=== PATIENT | female | born 1935 | race Caucasian/White ===

== ENCOUNTER 2020-10-21 08:09 | Emergency (ER) | payer MEDICARE ==
[2020-10-21] MEDS ORDERED: cloNIDine 0.1 MG TAB ONE (08:42)
== END 2020-10-21 10:54 | disposition home or self-care (01) ==
LOC: ERS 08:09
DX: I13.2 Hypertensive heart and chronic kidney disease with heart failure and with stage 5 chronic kidney disease, or end stage renal disease (principal); I50.9 Heart failure, unspecified; N18.6 End stage renal disease; E11.22 Type 2 diabetes mellitus with diabetic chronic kidney disease; E03.9 Hypothyroidism, unspecified; E78.5 Hyperlipidemia, unspecified; Z99.2 Dependence on renal dialysis
CPT/HCPCS: 36416; 93005

== ENCOUNTER 2020-12-19 17:24 | Inpatient (IN) | payer MEDICARE ==
[~2020-12-19 17:24] MED LIST: Iopamidol-370 76% 500 ML 1 ML ONE
[2020-12-19] MEDS ORDERED: hydrALAZINE 20 MG/ML VIAL ONE ×2 (18:10→20:22)
[2020-12-19 18:22] LABS: #Eosinphils 0.2 thou/uL (0.0-0.7); #Lymphocytes 1.4 thou/uL (1.20-3.40); #Monocytes 0.8 thou/uL (0.11-0.59); #Neutrophils 13.1 thou/uL (1.40-6.50); %Basophils 0.2 % (0.0-1.0); %Eosinophils 1.4 % (0.0-10.0); %Lymphocytes 8.9 % (21.0-51.0); %Monocytes 4.9 % (0.0-10.0); %Neutrophils 84.6 % (42.0-75.0); Hemoglobin 11.2 g/dL (12.0-16.0); Mean Corpuscular HGB CONC 34.2 g/dL (32.0-36.0); Mean Corpuscular Hemoglobin 34.4 pg (27.0-31.0); Mean Platelet Volume 7.8 fL (7.4-10.4); Platelet Count 168 thou/uL (130-400); RBC Distribution Width 13.9 % (11.5-14.5); Red Blood Cell (RBC) Count 3.26 mill/uL (4.20-5.40); White Blood Cell (WBC) Count 15.5 thou/uL (4.8-10.8)
[2020-12-19 18:31] LABS: Prothrombin Time 13.2 sec (12.0-14.7)
[2020-12-19 18:32] LABS: PTT 59.5 sec (22.9-36.1)
[2020-12-19 18:46] LABS: ALT (SGPT) 8 U/L (8-55); AST (SGOT) 18 U/L (5-34); Albumin 3.3 g/dL (3.4-4.8); Alkaline Phosphatase 116 U/L (40-110); Anion Gap 22 mmol/L (10-20); BUN (Urea Nitrogen) 13 mg/dL (9.8-20.1); Bilirubin, Total 0.4 mg/dL (0.2-1.2); CK (CPK) 99 U/L (29-168); Calc. Creatinine Clearance 0 mL/min (70-130); Calcium 8.6 mg/dL (7.8-10.44); Carbon Dioxide 21 mmol/L (23-31); Chloride 96 mmol/L (98-107); Globulin 3.8 g/dL (2.4-3.5); Glucose 247 mg/dL (83-110); Potassium 3.8 mmol/L (3.5-5.1); Protein, Total 7.1 g/dL (5.8-8.1); Sodium 135 mmol/L (136-145)
[2020-12-19 19:08] LABS: CKMB 3.8 ng/mL (0-6.6)
[2020-12-19 19:41] LABS: Bacteria/HPF None Seen HPF (None Seen); Bilirubin Negative (Negative); Blood, Urine 2+ (Negative); Clarity Extra Turbid (Clear); Glucose, Urine (Dipstick) Normal (Negative); Ketone, Urine Trace mg/dL (Negative); Leukocyte 500 Leu/uL (Negative); Nitrite Negative (Negative); Protein, Urine (Dipstick) 300 mg/dL (Neg-Trace); RBC/HPF None Seen HPF (0-3); Specific Gravity, Urine 1.012 (1.002-1.036); Squamous Epithelial None Seen HPF (0-3); Urobilinogen Normal mg/dL (Less than 2); WBC/HPF Greater than 50 HPF (0-3)
[2020-12-19] MEDS ORDERED: cefTRIAXone\\ROCEPHIN 1 GM VIAL ONE (20:02)
[2020-12-19] MEDS ORDERED: Vancomycin 1 GM/200 ML BAG ONE (20:02)
[2020-12-19] MEDS ORDERED: Ondansetron PF 4 MG/2 ML Vial IVP PRN (20:57)
[2020-12-19] MEDS ORDERED: Acetaminophen 325 MG TAB PO PRN (20:57)
[2020-12-19] MEDS ORDERED: HumaLOG 300 UNITS/3 ML VIAL SC PRN (20:58)
[2020-12-19] MEDS ORDERED: Dextrose 50% Abboject 50 ML SYRINGE SLOW IVP PRN (20:58)
[2020-12-19] MEDS ORDERED: Dextrose 5% in Water 1,000 ML IV PRN (20:58)
[2020-12-19] MEDS ORDERED: levETIRAcetam 500 MG TAB PO SCH (21:00)
[2020-12-19 21:10] LABS: Troponin I 0.084 ng/mL (< 0.028)
[2020-12-19] MEDS ORDERED: Carvedilol 3.125 MG TAB PO SCH (21:15)
[2020-12-19 21:35] LABS: SARS-CoV-2 NAA Rapid Test Not Detected (NotDetected)
[2020-12-19] MEDS: Heparin 5,000 UNITS/ML VIAL SC SCH (22:02)
[2020-12-19 22:26] VITALS: BMI 22.4
[2020-12-19] MEDS ORDERED: levETIRAcetam in NS 500 MG in Premix Bag 1 BAG IVPB SCH (22:30)
[2020-12-19] MEDS ORDERED: HOLD VANCOMYCIN FOR LEVEL >20 FS SCH (22:45)
[2020-12-19] MEDS ORDERED: Vancomycin HCl 250 MG in Sodium Chloride 0.9% 100 ML IVPB SCH (22:45)
[2020-12-19] MEDS ORDERED: Vancomycin 1 GM in Premix Bag 1 BAG IVPB SCH (22:45)
[2020-12-19] MEDS ORDERED: Vancomycin HCl 750 MG in Sodium Chloride 0.9% 250 ML 250 ML IVPB SCH (22:45)
[2020-12-19] MEDS ORDERED: Vancomycin HCl 500 MG in Sodium Chloride 0.9% 100 ML IVPB SCH (22:45)
[2020-12-20] MEDS: hydrALAZINE 20 MG/ML VIAL SLOW IVP PRN (00:32)
[2020-12-20 01:32] LABS: Troponin I 0.104 ng/mL (< 0.028)
[2020-12-20 05:00] LABS: #Lymphocytes 2.6 thou/uL (1.20-3.40); #Monocytes 1.1 thou/uL (0.11-0.59); #Neutrophils 11.5 thou/uL (1.40-6.50); %Basophils 0.2 % (0.0-1.0); %Eosinophils 0.2 % (0.0-10.0); %Lymphocytes 17.1 % (21.0-51.0); %Monocytes 7.1 % (0.0-10.0); %Neutrophils 75.4 % (42.0-75.0); Hemoglobin 11.1 g/dL (12.0-16.0); Mean Corpuscular HGB CONC 33.5 g/dL (32.0-36.0); Mean Corpuscular Hemoglobin 33.3 pg (27.0-31.0); Mean Corpuscular Volume 99.4 fL (78.0-98.0); Platelet Count 217 thou/uL (130-400); RBC Distribution Width 14.2 % (11.5-14.5); Red Blood Cell (RBC) Count 3.32 mill/uL (4.20-5.40); White Blood Cell (WBC) Count 15.3 thou/uL (4.8-10.8)
[2020-12-20 05:25] LABS: Anion Gap 24 mmol/L (10-20); BUN (Urea Nitrogen) 18 mg/dL (9.8-20.1); Calc. Creatinine Clearance 9 mL/min (70-130); Calcium 8.7 mg/dL (7.8-10.44); Carbon Dioxide 18 mmol/L (23-31); Chloride 98 mmol/L (98-107); Glucose 306 mg/dL (83-110); Potassium 3.7 mmol/L (3.5-5.1); Sodium 136 mmol/L (136-145)
[2020-12-20] MEDS: HumaLOG 300 UNITS/3 ML VIAL SC PRN (06:15)
[2020-12-20] MEDS ORDERED: Nitroglycerin 0.4 MG TAB (25 Tab Bottle) SL PRN (07:32)
[2020-12-20] MEDS ORDERED: Carvedilol 3.125 MG TAB PO SCH (08:00)
[2020-12-20] MEDS ORDERED: levETIRAcetam 500 MG TAB PO SCH (09:00)
[2020-12-20] MEDS ORDERED: Non-Formulary Item 1 EACH (Levothyroxine Sodium [Levothyroxine] 150 MCG Capsule) PO SCH (09:00)
[2020-12-20] MEDS ORDERED: Non-Formulary Item 1 EACH (Sevelamer Hcl [Sevelamer Hcl] 800 MG Tablet) PO SCH (09:00)
[2020-12-20] MEDS ORDERED: Docusate 100 MG CAP PO SCH (09:00)
[2020-12-20] MEDS ORDERED: Non-Formulary Item 1 EACH (Cyanocobalamin (Vitamin B-12) [B-12] 500 MCG Tablet) PO SCH (09:00)
[2020-12-20] MEDS ORDERED: Allopurinol 100 MG TAB PO SCH (09:00)
[2020-12-20] MEDS ORDERED: Non-Formulary Item 1 EACH (Insulin Detemir [Levemir Flextouch] 100 UNIT/ML Insuln.Pen) SC SCH (09:00)
[2020-12-20] MEDS ORDERED: OLANZapine 2.5 MG TAB PO SCH (09:00)
[2020-12-20] MEDS ORDERED: Folic Acid 1 MG TAB PO SCH (09:00)
[2020-12-20] MEDS ORDERED: Non-Formulary Item 1 EACH (Docusate Sodium [Stool Softener] 100 MG Tablet) PO SCH (09:00)
[2020-12-20] MEDS ORDERED: Cyanocobalamin (Vitamin B-12) 1,000 MCG TAB PO SCH (09:00)
[2020-12-20] MEDS ORDERED: Atorvastatin Calcium 40 MG TAB PO SCH (09:00)
[2020-12-20] MEDS: Heparin 5,000 UNITS/ML VIAL SC SCH ×3 (10:18→21:27)
[2020-12-20] MEDS: levETIRAcetam in NS 500 MG in Premix Bag 1 BAG IVPB SCH ×2 (10:18→22:46)
[2020-12-20] MEDS: Lantus 1000 UNITS/10 ML VIAL SC SCH ×2 (10:19→21:27)
[2020-12-20] MEDS: Carvedilol 3.125 MG TAB PO SCH (16:09)
[2020-12-20] MEDS: Aspirin 325 mg Enteric Coated Tablet PO SCH (16:10)
[2020-12-20] MEDS: Bumetanide 1 MG TAB PO SCH (16:10)
[2020-12-20] MEDS: Montelukast Sodium 10 mg Tablet PO SCH (16:10)
[2020-12-20] MEDS: Sevelamer Carbonate 800 MG TAB PO SCH ×3 (16:10→21:28)
[2020-12-20] MEDS: Famotidine 20 MG TAB PO SCH ×2 (16:10→21:27)
[2020-12-20] MEDS: cefTRIAXone\\ROCEPHIN 1 GM in Sodium Chloride 0.9% 100 ML IVPB SCH (21:24)
[2020-12-21 04:56] LABS: #Eosinphils 0.5 thou/uL (0.0-0.7); #Lymphocytes 3.4 thou/uL (1.20-3.40); #Neutrophils 6.8 thou/uL (1.40-6.50); %Basophils 0.3 % (0.0-1.0); %Eosinophils 4.6 % (0.0-10.0); %Lymphocytes 28.6 % (21.0-51.0); %Monocytes 8.5 % (0.0-10.0); Hemoglobin 10.8 g/dL (12.0-16.0); Mean Corpuscular HGB CONC 33.7 g/dL (32.0-36.0); Mean Corpuscular Hemoglobin 34.1 pg (27.0-31.0); Mean Platelet Volume 7.9 fL (7.4-10.4); Platelet Count 205 thou/uL (130-400); RBC Distribution Width 14.2 % (11.5-14.5); Red Blood Cell (RBC) Count 3.17 mill/uL (4.20-5.40); White Blood Cell (WBC) Count 11.8 thou/uL (4.8-10.8)
[2020-12-21 05:25] LABS: Anion Gap 18 mmol/L (10-20); BUN (Urea Nitrogen) 20 mg/dL (9.8-20.1); Calc. Creatinine Clearance 7 mL/min (70-130); Calcium 8.7 mg/dL (7.8-10.44); Carbon Dioxide 22 mmol/L (23-31); Chloride 102 mmol/L (98-107); Glucose 142 mg/dL (83-110); Potassium 3.1 mmol/L (3.5-5.1); Sodium 139 mmol/L (136-145)
[2020-12-21] MEDS: Levothyroxine 150 MCG TAB PO SCH (05:56)
[2020-12-21] MEDS ORDERED: GUAIFENESIN SF SOLN 200 MG/10 ML UDCUP PO PRN (07:20)
[2020-12-21] MEDS ORDERED: Loperamide HCl 2 MG CAP PO PRN (07:20)
[2020-12-21] MEDS ORDERED: Hydrocerin (Eucerin) Cream 120 gm Jar TOP PRN (07:20)
[2020-12-21] MEDS ORDERED: Bisacodyl 10 MG SUPP PR PRN (07:20)
[2020-12-21] MEDS ORDERED: Ondansetron ODT 4 MG TAB SL PRN (07:20)
[2020-12-21] MEDS ORDERED: Cepastat Lozenges 1 LOZ PO PRN (07:20)
[2020-12-21] MEDS ORDERED: Calcium Carbonate 500 MG ChewTAB PO PRN (07:20)
[2020-12-21] MEDS ORDERED: Senokot S 8.6-50 MG TAB PO PRN (07:20)
[2020-12-21] MEDS ORDERED: Artificial Tear Sol 15 ML BOT EA EYE PRN (07:20)
[2020-12-21] MEDS ORDERED: Sodium Chloride 0.65% Nasal 44 ML BOT EA NARE PRN (07:20)
[2020-12-21] MEDS ORDERED: Potassium Chloride 20 MEQ TAB PO SCH (07:30)
[2020-12-21] MEDS: hydrALAZINE 20 MG/ML VIAL SLOW IVP PRN (08:32)
[2020-12-21] MEDS: Heparin 5,000 UNITS/ML VIAL SC SCH ×3 (08:32→21:43)
[2020-12-21] MEDS: levETIRAcetam in NS 500 MG in Premix Bag 1 BAG IVPB SCH ×2 (08:32→21:43)
[2020-12-21] MEDS: Carvedilol 3.125 MG TAB PO SCH (08:33)
[2020-12-21] MEDS: Aspirin 325 mg Enteric Coated Tablet PO SCH (08:33)
[2020-12-21] MEDS: Bumetanide 1 MG TAB PO SCH (08:33)
[2020-12-21] MEDS: Lantus 1000 UNITS/10 ML VIAL SC SCH ×2 (08:34→21:43)
[2020-12-21] MEDS: Famotidine 20 MG TAB PO SCH (08:34)
[2020-12-21] MEDS: Montelukast Sodium 10 mg Tablet PO SCH (08:35)
[2020-12-21] MEDS: Sevelamer Carbonate 800 MG TAB PO SCH ×3 (08:35→21:44)
[2020-12-21] MEDS: Nystatin Powder 15 GM BOT TOP SCH ×2 (08:35→21:43)
[2020-12-21 08:36] LABS: Vancomycin, Random 13.3 ug/mL (See Comment)
[2020-12-21] MEDS ORDERED: Heparin 10,000 UNITS/ 10 ML VIAL ONE (09:42)
[2020-12-21] MEDS ORDERED: Vancomycin HCl 500 MG in Sodium Chloride 0.9% 100 ML IVPB SCH (10:15)
[2020-12-21] MEDS ORDERED: Carvedilol 6.25 MG TAB PO SCH (17:00)
[2020-12-21] MEDS: cefTRIAXone\\ROCEPHIN 1 GM in Sodium Chloride 0.9% 100 ML IVPB SCH (21:43)
[2020-12-22] MEDS: hydrALAZINE 20 MG/ML VIAL SLOW IVP PRN (04:26)
[2020-12-22 05:25] LABS: Anion Gap 15 mmol/L (10-20); BUN (Urea Nitrogen) 9 mg/dL (9.8-20.1); Calc. Creatinine Clearance 11 mL/min (70-130); Calcium 8.6 mg/dL (7.8-10.44); Carbon Dioxide 24 mmol/L (23-31); Chloride 103 mmol/L (98-107); Glucose 99 mg/dL (83-110); Potassium 3.3 mmol/L (3.5-5.1); Sodium 140 mmol/L (136-145)
[2020-12-22] MEDS: Levothyroxine 150 MCG TAB PO SCH (05:56)
[2020-12-22 06:09] LABS: #Basophils 0.1 thou/uL (0.0-0.2); #Eosinphils 0.8 thou/uL (0.0-0.7); #Lymphocytes 2.5 thou/uL (1.20-3.40); #Neutrophils 6.3 thou/uL (1.40-6.50); %Basophils 0.5 % (0.0-1.0); %Eosinophils 7.2 % (0.0-10.0); %Lymphocytes 23.6 % (21.0-51.0); %Monocytes 9.1 % (0.0-10.0); %Neutrophils 59.5 % (42.0-75.0); Hemoglobin 10.9 g/dL (12.0-16.0); Mean Corpuscular Hemoglobin 32.3 pg (27.0-31.0); Mean Platelet Volume 8.2 fL (7.4-10.4); Platelet Count 235 thou/uL (130-400); RBC Distribution Width 14.4 % (11.5-14.5); Red Blood Cell (RBC) Count 3.36 mill/uL (4.20-5.40); White Blood Cell (WBC) Count 10.5 thou/uL (4.8-10.8)
[2020-12-22] MEDS ORDERED: Potassium Chloride 20 MEQ TAB PO SCH (06:45)
[2020-12-22] MEDS ORDERED: FLU VACC QS2021-22(65YR UP)/PF 240 MCG/0.7 ML SYRINGE IM ONE (09:00)
[2020-12-22] MEDS: Sevelamer Carbonate 800 MG TAB PO SCH ×3 (09:35→21:40)
[2020-12-22] MEDS: levETIRAcetam 500 MG TAB PO SCH ×2 (09:36→21:40)
[2020-12-22] MEDS: Amlodipine 5 MG TAB PO SCH (09:36)
[2020-12-22] MEDS: Montelukast Sodium 10 mg Tablet PO SCH (09:36)
[2020-12-22] MEDS: Famotidine 20 MG TAB PO SCH (09:36)
[2020-12-22] MEDS: Aspirin 325 MG TAB PO SCH (09:36)
[2020-12-22] MEDS: Carvedilol 6.25 MG TAB PO SCH ×2 (09:36→16:10)
[2020-12-22] MEDS: Bumetanide 1 MG TAB PO SCH (09:36)
[2020-12-22] MEDS: Cyanocobalamin (Vitamin B-12) 1,000 MCG TAB PO SCH (09:36)
[2020-12-22] MEDS: Folic Acid/Vit B Comp W-C PO SCH (09:36)
[2020-12-22] MEDS: AMPicillin 1 GM in Sodium Chloride 0.9% 100 ML IVPB SCH (09:37)
[2020-12-22] MEDS: Heparin 5,000 UNITS/ML VIAL SC SCH ×3 (09:37→21:40)
[2020-12-22] MEDS: Lantus 1000 UNITS/10 ML VIAL SC SCH ×2 (09:37→21:40)
[2020-12-22] MEDS: Nystatin Powder 15 GM BOT TOP SCH ×2 (09:38→21:40)
[2020-12-23] MEDS: HumaLOG 300 UNITS/3 ML VIAL SC PRN (05:14)
[2020-12-23] MEDS: hydrALAZINE 20 MG/ML VIAL SLOW IVP PRN (05:14)
[2020-12-23] MEDS: Levothyroxine 150 MCG TAB PO SCH (05:15)
[2020-12-23] MEDS: AMPicillin 1 GM in Sodium Chloride 0.9% 100 ML IVPB SCH (09:12)
[2020-12-23] MEDS: Lantus 1000 UNITS/10 ML VIAL SC SCH (09:13)
[2020-12-23] MEDS ORDERED: Heparin 10,000 UNITS/ 10 ML VIAL ONE (09:13)
[2020-12-23] MEDS: Carvedilol 6.25 MG TAB PO SCH (10:33)
[2020-12-23] MEDS: Sevelamer Carbonate 800 MG TAB PO SCH ×2 (10:34→13:42)
[2020-12-23] MEDS: Heparin 5,000 UNITS/ML VIAL SC SCH ×2 (10:34→13:43)
[2020-12-23] MEDS: levETIRAcetam 500 MG TAB PO SCH (10:44)
[2020-12-23] MEDS ORDERED: levETIRAcetam 500 mg/5 ml Oral Solution PER TUBE SCH ×2 (10:45→21:00)
[2020-12-23 13:18] VITALS: BP 145/68; TEMP 97.8
[2020-12-23] MEDS: Nystatin Powder 15 GM BOT TOP SCH (13:41)
[2020-12-23] MEDS: Famotidine 20 MG TAB PO SCH (13:42)
[2020-12-23] MEDS: Montelukast Sodium 10 mg Tablet PO SCH (13:42)
[2020-12-23] MEDS: Aspirin 325 MG TAB PO SCH (13:43)
[2020-12-23] MEDS: Folic Acid/Vit B Comp W-C PO SCH (13:43)
[2020-12-23] MEDS: Cyanocobalamin (Vitamin B-12) 1,000 MCG TAB PO SCH (13:43)
[2020-12-23] MEDS: Bumetanide 1 MG TAB PO SCH (13:43)
[2020-12-23] MEDS: Amlodipine 5 MG TAB PO SCH (13:43)
== END 2020-12-23 15:10 | disposition home health service (06) | DRG 871 ==
LOC: ERS 17:24 → 2NO 19:13
PROVIDERS: ADMIT Internal Medicine; ATTEND Internal Medicine
DX: A41.9 Sepsis, unspecified organism (principal); G93.41 Metabolic encephalopathy; N18.6 End stage renal disease; N39.0 Urinary tract infection, site not specified; E87.2 Acidosis; E87.1 Hypo-osmolality and hyponatremia; I13.2 Hypertensive heart and chronic kidney disease with heart failure and with stage 5 chronic kidney disease, or end stage renal disease; I50.32 Chronic diastolic (congestive) heart failure; E44.0 Moderate protein-calorie malnutrition; R65.20 Severe sepsis without septic shock; Z20.822 Contact with and (suspected) exposure to COVID-19; B95.2 Enterococcus as the cause of diseases classified elsewhere; B96.89 Other specified bacterial agents as the cause of diseases classified elsewhere; F03.90 Unspecified dementia, unspecified severity, without behavioral disturbance, psychotic disturbance, mood disturbance, and anxiety; I16.0 Hypertensive urgency; R79.89 Other specified abnormal findings of blood chemistry; G40.909 Epilepsy, unspecified, not intractable, without status epilepticus; Z66 Do not resuscitate; D63.1 Anemia in chronic kidney disease; E87.6 Hypokalemia; E11.22 Type 2 diabetes mellitus with diabetic chronic kidney disease; E11.65 Type 2 diabetes mellitus with hyperglycemia; E78.5 Hyperlipidemia, unspecified; E03.9 Hypothyroidism, unspecified; Z79.82 Long term (current) use of aspirin; Z79.890 Hormone replacement therapy; Z79.4 Long term (current) use of insulin; Z79.899 Other long term (current) drug therapy; Z82.49 Family history of ischemic heart disease and other diseases of the circulatory system; I69.992 Facial weakness following unspecified cerebrovascular disease; Z99.2 Dependence on renal dialysis; Z90.49 Acquired absence of other specified parts of digestive tract; Z90.710 Acquired absence of both cervix and uterus; Z68.22 Body mass index [BMI] 22.0-22.9, adult
CPT/HCPCS: 36415; 36416; 51702; 70450; 70496; 70498; 70551; 71045; 80048; 80053; 80177; 80202; 81003; 81015; 82550; 82553; 83605; 83880; 84484; 85025; 85610; 85730; 87040; 87077; 87086; 87186; 90935; 93005; 93306; 95712; 95819; 95957; 96365; 96375; 96376; G0257; J0290; J0360; J0696; J1644; J1815; J1953; J3370; J3490; Q9967; U0002

== ENCOUNTER 2021-02-17 17:29 | Inpatient (IN) | payer MEDICARE ==
[2021-02-17] MEDS ORDERED: Labetalol HCl 100 MG/20 ML VIAL ONE (18:15)
[2021-02-17 18:17] LABS: #Eosinphils 0.1 thou/uL (0.0-0.7); #Lymphocytes 1.6 thou/uL (1.20-3.40); #Monocytes 0.5 thou/uL (0.11-0.59); #Neutrophils 9.6 thou/uL (1.40-6.50); %Basophils 0.2 % (0.0-1.0); %Lymphocytes 13.8 % (21.0-51.0); %Monocytes 4.4 % (0.0-10.0); %Neutrophils 80.7 % (42.0-75.0); Hemoglobin 13.5 g/dL (12.0-16.0); Mean Corpuscular Hemoglobin 33.2 pg (27.0-31.0); Mean Platelet Volume 8.7 fL (7.4-10.4); Platelet Count 173 thou/uL (130-400); RBC Distribution Width 14.3 % (11.5-14.5); Red Blood Cell (RBC) Count 4.06 mill/uL (4.20-5.40); White Blood Cell (WBC) Count 11.8 thou/uL (4.8-10.8)
[2021-02-17 18:35] LABS: INR-International Normal Ratio 1.1; Prothrombin Time 14.7 sec (12.0-14.7)
[2021-02-17 18:36] LABS: PTT 35.2 sec (22.9-36.1)
[2021-02-17 18:37] LABS: ALT (SGPT) 21 U/L (8-55); AST (SGOT) 46 U/L (5-34); Albumin 3.5 g/dL (3.4-4.8); Alkaline Phosphatase 102 U/L (40-110); Anion Gap 19 mmol/L (10-20); BUN (Urea Nitrogen) 11 mg/dL (9.8-20.1); Bilirubin, Total 0.5 mg/dL (0.2-1.2); Calc. Creatinine Clearance 0 mL/min (70-130); Calcium 8.7 mg/dL (7.8-10.44); Carbon Dioxide 19 mmol/L (23-31); Chloride 101 mmol/L (98-107); Globulin 3.8 g/dL (2.4-3.5); Glucose 225 mg/dL (83-110); Lipase 12 U/L (8-78); Magnesium 1.7 mg/dL (1.6-2.6); Potassium 4.2 mmol/L (3.5-5.1); Protein, Total 7.3 g/dL (5.8-8.1); Sodium 135 mmol/L (136-145)
[2021-02-17] MEDS ORDERED: Aspirin 300 MG Suppository ONE (19:00)
[2021-02-17 19:40] LABS: Bacteria/HPF 1+ HPF (None Seen); Bilirubin Negative (Negative); Blood, Urine 2+ (Negative); Clarity Extra Turbid (Clear); Glucose, Urine (Dipstick) 300 mg/dL (Negative); Ketone, Urine 10 mg/dL (Negative); Leukocyte 500 Leu/uL (Negative); Nitrite Negative (Negative); Protein, Urine (Dipstick) 300 mg/dL (Neg-Trace); Specific Gravity, Urine 1.018 (1.002-1.036); Squamous Epithelial 0-3 HPF (0-3); Urobilinogen Normal mg/dL (Less than 2); WBC/HPF Greater than 50 HPF (0-3); pH, Urine 6.5 (5.0-9.0)
[2021-02-17] MEDS ORDERED: cefTRIAXone\\ROCEPHIN 2 GM VIAL ONE (20:43)
[2021-02-17] MEDS ORDERED: Ondansetron PF 4 MG/2 ML Vial IVP PRN (21:23)
[2021-02-17] MEDS ORDERED: Dextrose 50% Abboject 50 ML SYRINGE SLOW IVP PRN (21:25)
[2021-02-17] MEDS ORDERED: Dextrose 5% in Water 1,000 ML IV PRN (21:25)
[2021-02-17] MEDS ORDERED: HumaLOG 300 UNITS/3 ML VIAL SC PRN ×2 (21:25)
[2021-02-17] MEDS ORDERED: niCARdipine 20MG In NaCl 20 MG/200 ML BAG ONE (21:28)
[2021-02-17 22:05] LABS: SARS-CoV-2 NAA Rapid Test Not Detected (NotDetected)
[2021-02-17] MEDS ORDERED: Vancomycin 1 GM/200 ML BAG ONE (22:34)
[2021-02-18] MEDS ORDERED: niCARdipine 25 MG in Sodium Chloride 0.9% 250 ML 250 ML IVPB SCH (00:15)
[2021-02-18 00:37] LABS: Lactic Acid 3.8 mmol/L (0.5-2.2)
[2021-02-18] MEDS ORDERED: Vancomycin HCl 500 MG in Sodium Chloride 0.9% 100 ML IVPB SCH (01:15)
[2021-02-18] MEDS ORDERED: Vancomycin HCl 750 MG in Sodium Chloride 0.9% 250 ML 250 ML IVPB SCH (01:15)
[2021-02-18] MEDS ORDERED: HOLD VANCOMYCIN FOR LEVEL >20 FS SCH (01:15)
[2021-02-18] MEDS ORDERED: Vancomycin HCl 250 MG in Sodium Chloride 0.9% 100 ML IVPB SCH (01:15)
[2021-02-18] MEDS ORDERED: Vancomycin 1 GM in Premix Bag 1 BAG IVPB SCH (01:15)
[2021-02-18 04:09] LABS: #Lymphocytes 1.4 thou/uL (1.20-3.40); #Monocytes 1.2 thou/uL (0.11-0.59); #Neutrophils 14.6 thou/uL (1.40-6.50); %Eosinophils 0.1 % (0.0-10.0); %Monocytes 6.9 % (0.0-10.0); %Neutrophils 84.9 % (42.0-75.0); Hemoglobin 12.7 g/dL (12.0-16.0); Mean Corpuscular HGB CONC 32.6 g/dL (32.0-36.0); Mean Corpuscular Hemoglobin 32.8 pg (27.0-31.0); Mean Platelet Volume 8.2 fL (7.4-10.4); Platelet Count 221 thou/uL (130-400); RBC Distribution Width 14.4 % (11.5-14.5); Red Blood Cell (RBC) Count 3.88 mill/uL (4.20-5.40); White Blood Cell (WBC) Count 17.2 thou/uL (4.8-10.8)
[2021-02-18 04:55] LABS: Anion Gap 23 mmol/L (10-20); BUN (Urea Nitrogen) 20 mg/dL (9.8-20.1); Calc. Creatinine Clearance 12 mL/min (70-130); Calcium 9.6 mg/dL (7.8-10.44); Carbon Dioxide 17 mmol/L (23-31); Chloride 101 mmol/L (98-107); Glucose 287 mg/dL (83-110); Potassium 4.2 mmol/L (3.5-5.1); Sodium 137 mmol/L (136-145)
[2021-02-18] MEDS: HumaLOG 300 UNITS/3 ML VIAL SC PRN ×2 (05:13→16:16)
[2021-02-18] MEDS ORDERED: Non-Formulary Item 1 EACH (Carvedilol [Coreg] 12.5 MG Tab) PO SCH (09:00)
[2021-02-18] MEDS ORDERED: Non-Formulary Item 1 EACH (Levothyroxine Sodium [Levothyroxine] 150 MCG Capsule) PO SCH (09:00)
[2021-02-18] MEDS: Famotidine 20 MG TAB PO SCH (09:36)
[2021-02-18] MEDS: Carvedilol 6.25 MG TAB PO SCH ×2 (09:36→20:09)
[2021-02-18] MEDS: Amlodipine 5 MG TAB PO SCH (09:36)
[2021-02-18] MEDS: Heparin 5,000 UNITS/ML VIAL SC SCH ×3 (09:37→20:10)
[2021-02-18 10:07] LABS: HBSAg Index 0.26 S/CO (0-0.99); Hep B Surf Ag Non-Reactive S/CO (NonReactive)
[2021-02-18] MEDS: hydrALAZINE 20 MG/ML VIAL SLOW IVP PRN (16:01)
[2021-02-18] MEDS: Acetaminophen 325 MG TAB PO PRN (16:20)
[2021-02-18] MEDS ORDERED: cefTRIAXone\\ROCEPHIN 1 GM in Sodium Chloride 0.9% 100 ML IVPB SCH (20:00)
[2021-02-18 23:39] LABS: Vancomycin, Random 15.9 ug/mL (See Comment)
[2021-02-19] MEDS: hydrALAZINE 20 MG/ML VIAL SLOW IVP PRN (03:15)
[2021-02-19 05:48] LABS: #Neutrophils 11.3 thou/uL (1.40-6.50); %Basophils 0.1 % (0.0-1.0); %Eosinophils 0.1 % (0.0-10.0); %Lymphocytes 13.8 % (21.0-51.0); Hemoglobin 11.6 g/dL (12.0-16.0); Mean Corpuscular HGB CONC 32.3 g/dL (32.0-36.0); Mean Corpuscular Hemoglobin 32.8 pg (27.0-31.0); Mean Platelet Volume 8.4 fL (7.4-10.4); Platelet Count 216 thou/uL (130-400); RBC Distribution Width 14.7 % (11.5-14.5); Red Blood Cell (RBC) Count 3.54 mill/uL (4.20-5.40); White Blood Cell (WBC) Count 14.3 thou/uL (4.8-10.8)
[2021-02-19] MEDS: HumaLOG 300 UNITS/3 ML VIAL SC PRN ×2 (05:52→11:34)
[2021-02-19 06:12] LABS: Anion Gap 23 mmol/L (10-20); BUN (Urea Nitrogen) 29 mg/dL (9.8-20.1); Calc. Creatinine Clearance 8 mL/min (70-130); Calcium 9.4 mg/dL (7.8-10.44); Carbon Dioxide 15 mmol/L (23-31); Chloride 101 mmol/L (98-107); Glucose 191 mg/dL (83-110); Potassium 4.1 mmol/L (3.5-5.1); Sodium 135 mmol/L (136-145)
[2021-02-19] MEDS: Levothyroxine 150 MCG TAB PO SCH (06:20)
[2021-02-19] MEDS: Acetaminophen 325 MG TAB PO PRN (08:38)
[2021-02-19] MEDS: Famotidine 20 MG TAB PO SCH (08:39)
[2021-02-19] MEDS: Amlodipine 5 MG TAB PO SCH (08:39)
[2021-02-19] MEDS: Heparin 5,000 UNITS/ML VIAL SC SCH ×3 (08:40→21:00)
[2021-02-19] MEDS: Carvedilol 6.25 MG TAB PO SCH ×2 (08:40→21:00)
[2021-02-19] MEDS ORDERED: Ampicillin/Sulbactam 1.5 GM in Sodium Chloride 0.9% 100 ML IVPB SCH (12:00)
[2021-02-19] MEDS ORDERED: Mineral Oil ENEMA PR SCH (17:15)
[2021-02-20] MEDS: Ampicillin/Sulbactam 1.5 GM in Sodium Chloride 0.9% 100 ML IVPB SCH ×2 (01:17→14:50)
[2021-02-20 05:37] LABS: #Basophils 0.1 thou/uL (0.0-0.2); #Eosinphils 0.1 thou/uL (0.0-0.7); #Lymphocytes 1.6 thou/uL (1.20-3.40); #Monocytes 0.9 thou/uL (0.11-0.59); #Neutrophils 7.7 thou/uL (1.40-6.50); %Basophils 1.2 % (0.0-1.0); %Eosinophils 0.5 % (0.0-10.0); %Lymphocytes 15.2 % (21.0-51.0); %Monocytes 8.4 % (0.0-10.0); %Neutrophils 74.6 % (42.0-75.0); Hemoglobin 10.8 g/dL (12.0-16.0); Mean Corpuscular HGB CONC 31.8 g/dL (32.0-36.0); Mean Corpuscular Hemoglobin 32.9 pg (27.0-31.0); Mean Platelet Volume 8.6 fL (7.4-10.4); Platelet Count 180 thou/uL (130-400); RBC Distribution Width 14.7 % (11.5-14.5); Red Blood Cell (RBC) Count 3.29 mill/uL (4.20-5.40); White Blood Cell (WBC) Count 10.4 thou/uL (4.8-10.8)
[2021-02-20] MEDS: HumaLOG 300 UNITS/3 ML VIAL SC PRN (05:58)
[2021-02-20 06:02] LABS: Anion Gap 26 mmol/L (10-20); BUN (Urea Nitrogen) 41 mg/dL (9.8-20.1); Calc. Creatinine Clearance 6 mL/min (70-130); Calcium 8.5 mg/dL (7.8-10.44); Carbon Dioxide 14 mmol/L (23-31); Chloride 103 mmol/L (98-107); Glucose 194 mg/dL (83-110); Sodium 139 mmol/L (136-145)
[2021-02-20] MEDS: Levothyroxine 150 MCG TAB PO SCH (06:04)
[2021-02-20] MEDS ORDERED: Heparin 10,000 UNITS/ 10 ML VIAL ONE (11:48)
[2021-02-20] MEDS: Heparin 5,000 UNITS/ML VIAL SC SCH ×3 (14:51→20:27)
[2021-02-20] MEDS: Famotidine 20 MG TAB PO SCH (15:07)
[2021-02-20] MEDS: Amlodipine 5 MG TAB PO SCH (18:35)
[2021-02-20] MEDS: Carvedilol 6.25 MG TAB PO SCH ×2 (18:36→20:27)
[2021-02-20] MEDS: hydrALAZINE 20 MG/ML VIAL SLOW IVP PRN (18:51)
[2021-02-21] MEDS: Ampicillin/Sulbactam 1.5 GM in Sodium Chloride 0.9% 100 ML IVPB SCH ×2 (00:05→13:12)
[2021-02-21] MEDS: Levothyroxine 150 MCG TAB PO SCH (05:04)
[2021-02-21 06:15] LABS: #Basophils 0.1 thou/uL (0.0-0.2); #Eosinphils 0.2 thou/uL (0.0-0.7); #Lymphocytes 1.9 thou/uL (1.20-3.40); #Neutrophils 6.3 thou/uL (1.40-6.50); %Basophils 0.7 % (0.0-1.0); %Eosinophils 1.6 % (0.0-10.0); %Lymphocytes 20.6 % (21.0-51.0); %Monocytes 10.1 % (0.0-10.0); Hemoglobin 11.4 g/dL (12.0-16.0); Mean Corpuscular HGB CONC 32.5 g/dL (32.0-36.0); Mean Corpuscular Hemoglobin 33.7 pg (27.0-31.0); Mean Platelet Volume 8.7 fL (7.4-10.4); Platelet Count 202 thou/uL (130-400); RBC Distribution Width 14.8 % (11.5-14.5); Red Blood Cell (RBC) Count 3.39 mill/uL (4.20-5.40); White Blood Cell (WBC) Count 9.4 thou/uL (4.8-10.8)
[2021-02-21 06:32] LABS: Anion Gap 27 mmol/L (10-20); BUN (Urea Nitrogen) 16 mg/dL (9.8-20.1); Calc. Creatinine Clearance 11 mL/min (70-130); Calcium 8.5 mg/dL (7.8-10.44); Carbon Dioxide 16 mmol/L (23-31); Chloride 100 mmol/L (98-107); Glucose 172 mg/dL (83-110); Potassium 3.8 mmol/L (3.5-5.1); Sodium 139 mmol/L (136-145)
[2021-02-21] MEDS: hydrALAZINE 20 MG/ML VIAL SLOW IVP PRN (08:33)
[2021-02-21] MEDS: Heparin 5,000 UNITS/ML VIAL SC SCH ×3 (08:46→21:33)
[2021-02-21] MEDS: HumaLOG 300 UNITS/3 ML VIAL SC PRN (11:20)
[2021-02-21] MEDS: Amlodipine 5 MG TAB PO SCH (13:58)
[2021-02-21] MEDS: Famotidine 20 MG TAB PO SCH (13:59)
[2021-02-21] MEDS: Carvedilol 6.25 MG TAB PO SCH ×2 (13:59→21:33)
[2021-02-22] MEDS: Ampicillin/Sulbactam 1.5 GM in Sodium Chloride 0.9% 100 ML IVPB SCH ×3 (01:46→20:22)
[2021-02-22] MEDS: Levothyroxine 150 MCG TAB PO SCH (05:26)
[2021-02-22 06:09] LABS: #Eosinphils 0.1 thou/uL (0.0-0.7); #Lymphocytes 1.6 thou/uL (1.20-3.40); #Monocytes 0.7 thou/uL (0.11-0.59); #Neutrophils 5.5 thou/uL (1.40-6.50); %Basophils 0.2 % (0.0-1.0); %Eosinophils 1.9 % (0.0-10.0); %Monocytes 8.5 % (0.0-10.0); %Neutrophils 69.4 % (42.0-75.0); Hemoglobin 11.6 g/dL (12.0-16.0); Mean Corpuscular HGB CONC 32.7 g/dL (32.0-36.0); Mean Platelet Volume 8.6 fL (7.4-10.4); Platelet Count 180 thou/uL (130-400); RBC Distribution Width 14.9 % (11.5-14.5); Red Blood Cell (RBC) Count 3.42 mill/uL (4.20-5.40); White Blood Cell (WBC) Count 7.9 thou/uL (4.8-10.8)
[2021-02-22 06:49] LABS: Anion Gap 27 mmol/L (10-20); BUN (Urea Nitrogen) 28 mg/dL (9.8-20.1); Calc. Creatinine Clearance 7 mL/min (70-130); Calcium 8.8 mg/dL (7.8-10.44); Carbon Dioxide 16 mmol/L (23-31); Chloride 102 mmol/L (98-107); Glucose 224 mg/dL (83-110); Potassium 3.6 mmol/L (3.5-5.1); Sodium 141 mmol/L (136-145)
[2021-02-22] MEDS ORDERED: Heparin 10,000 UNITS/ 10 ML VIAL ONE (08:36)
[2021-02-22] MEDS: Amlodipine 5 MG TAB PO SCH (15:27)
[2021-02-22] MEDS: Carvedilol 6.25 MG TAB PO SCH ×2 (15:27→21:46)
[2021-02-22] MEDS: Famotidine 20 MG TAB PO SCH (15:28)
[2021-02-22] MEDS: Heparin 5,000 UNITS/ML VIAL SC SCH ×3 (15:28→23:19)
[2021-02-22 21:44] LABS: Hemoglobin 12.8 g/dL (12.0-16.0)
[2021-02-23] MEDS: Ampicillin/Sulbactam 1.5 GM in Sodium Chloride 0.9% 100 ML IVPB SCH ×2 (01:33→12:22)
[2021-02-23] MEDS: Levothyroxine 150 MCG TAB PO SCH (05:01)
[2021-02-23 05:55] LABS: #Lymphocytes 1.7 thou/uL (1.20-3.40); #Monocytes 0.8 thou/uL (0.11-0.59); #Neutrophils 9.2 thou/uL (1.40-6.50); %Basophils 0.2 % (0.0-1.0); %Eosinophils 0.2 % (0.0-10.0); %Lymphocytes 14.8 % (21.0-51.0); %Monocytes 6.4 % (0.0-10.0); %Neutrophils 78.5 % (42.0-75.0); Hemoglobin 11.9 g/dL (12.0-16.0); Mean Corpuscular HGB CONC 29.5 g/dL (32.0-36.0); Mean Corpuscular Hemoglobin 30.7 pg (27.0-31.0); Mean Platelet Volume 9.3 fL (7.4-10.4); Platelet Count 187 thou/uL (130-400); RBC Distribution Width 14.8 % (11.5-14.5); Red Blood Cell (RBC) Count 3.88 mill/uL (4.20-5.40); White Blood Cell (WBC) Count 11.7 thou/uL (4.8-10.8)
[2021-02-23] MEDS: HumaLOG 300 UNITS/3 ML VIAL SC PRN (06:03)
[2021-02-23 06:13] LABS: Anion Gap 35 mmol/L (10-20); BUN (Urea Nitrogen) 15 mg/dL (9.8-20.1); Calc. Creatinine Clearance 11 mL/min (70-130); Carbon Dioxide 11 mmol/L (23-31); Chloride 98 mmol/L (98-107); Potassium 4.1 mmol/L (3.5-5.1); Sodium 140 mmol/L (136-145)
[2021-02-23 06:14] LABS: Calcium 9.2 mg/dL (7.8-10.44); Glucose 198 mg/dL (83-110)
[2021-02-23] MEDS: Famotidine 20 MG TAB PO SCH (10:03)
[2021-02-23] MEDS: Amlodipine 5 MG TAB PO SCH (10:03)
[2021-02-23] MEDS: Carvedilol 6.25 MG TAB PO SCH ×2 (10:03→20:27)
[2021-02-23] MEDS: Heparin 5,000 UNITS/ML VIAL SC SCH ×3 (10:26→20:27)
[2021-02-24] MEDS: Ampicillin/Sulbactam 1.5 GM in Sodium Chloride 0.9% 100 ML IVPB SCH ×2 (02:00→13:44)
[2021-02-24] MEDS: HumaLOG 300 UNITS/3 ML VIAL SC PRN (06:37)
[2021-02-24] MEDS: Levothyroxine 150 MCG TAB PO SCH (08:02)
[2021-02-24] MEDS: Heparin 5,000 UNITS/ML VIAL SC SCH ×3 (09:20→22:34)
[2021-02-24 10:18] VITALS: BMI 20.6
[2021-02-24] MEDS: Amlodipine 5 MG TAB PO SCH (13:12)
[2021-02-24] MEDS: Carvedilol 6.25 MG TAB PO SCH ×2 (13:12→22:33)
[2021-02-24] MEDS: Famotidine 20 MG TAB PO SCH (13:13)
[2021-02-25] MEDS: hydrALAZINE 20 MG/ML VIAL SLOW IVP PRN (01:19)
[2021-02-25] MEDS: Levothyroxine 150 MCG TAB PO SCH (05:56)
[2021-02-25] MEDS: HumaLOG 300 UNITS/3 ML VIAL SC PRN ×3 (06:23→17:38)
[2021-02-25] MEDS: Carvedilol 6.25 MG TAB PO SCH ×2 (10:21→21:52)
[2021-02-25] MEDS: Amlodipine 5 MG TAB PO SCH (10:21)
[2021-02-25] MEDS: Famotidine 20 MG TAB PO SCH (10:22)
[2021-02-25] MEDS: Heparin 5,000 UNITS/ML VIAL SC SCH (10:24)
[2021-02-25 19:40] LABS: SARS-CoV-2 PCR by NAA Not Detected (NotDetected)
[2021-02-26] MEDS: hydrALAZINE 20 MG/ML VIAL SLOW IVP PRN ×2 (02:27→12:58)
[2021-02-26] MEDS: HumaLOG 300 UNITS/3 ML VIAL SC PRN (06:16)
[2021-02-26] MEDS: Levothyroxine 150 MCG TAB PO SCH (10:04)
[2021-02-26] MEDS: Carvedilol 6.25 MG TAB PO SCH (10:06)
[2021-02-26] MEDS: Amlodipine 5 MG TAB PO SCH (10:06)
[2021-02-26] MEDS: Famotidine 20 MG TAB PO SCH (10:07)
[2021-02-26 12:52] VITALS: BP 193/105; TEMP 98.1
== END 2021-02-26 16:55 | disposition hospice, home (50) | DRG 689 ==
LOC: ERS 17:29 → CCU 22:14 → NEURO 02-18 22:33
PROVIDERS: ADMIT Internal Medicine; ATTEND Internal Medicine
PROC: 5A1D70Z Performance of Urinary Filtration, Intermittent, Less than 6 Hours Per Day (ICD-10-PCS; principal; 2021-02-20)
DX: N39.0 Urinary tract infection, site not specified (principal); Z66 Do not resuscitate; Z51.5 Encounter for palliative care; Z20.822 Contact with and (suspected) exposure to COVID-19; G93.41 Metabolic encephalopathy; N18.6 End stage renal disease; I16.1 Hypertensive emergency; I13.2 Hypertensive heart and chronic kidney disease with heart failure and with stage 5 chronic kidney disease, or end stage renal disease; I50.32 Chronic diastolic (congestive) heart failure; R64 Cachexia; I42.8 Other cardiomyopathies; I47.1 Supraventricular tachycardia; F03.90 Unspecified dementia, unspecified severity, without behavioral disturbance, psychotic disturbance, mood disturbance, and anxiety; E11.22 Type 2 diabetes mellitus with diabetic chronic kidney disease; D63.1 Anemia in chronic kidney disease; E03.9 Hypothyroidism, unspecified; Z22.8 Carrier of other infectious diseases; Z99.2 Dependence on renal dialysis; Z90.49 Acquired absence of other specified parts of digestive tract; Z98.49 Cataract extraction status, unspecified eye; Z90.710 Acquired absence of both cervix and uterus; Z86.73 Personal history of transient ischemic attack (TIA), and cerebral infarction without residual deficits; Z87.440 Personal history of urinary (tract) infections; Z79.899 Other long term (current) drug therapy; Z79.82 Long term (current) use of aspirin; Z79.890 Hormone replacement therapy; Z79.4 Long term (current) use of insulin; Z82.49 Family history of ischemic heart disease and other diseases of the circulatory system; Z68.20 Body mass index [BMI] 20.0-20.9, adult
CPT/HCPCS: 36415; 36416; 51701; 70450; 70496; 70498; 74018; 80048; 80053; 80202; 81003; 81015; 82274; 83605; 83690; 83735; 84443; 85025; 85610; 85730; 87040; 87086; 87340; 90935; 93005; 96365; 96367; 96375; G0257; J0295; J0360; J0696; J1644; J1815; J3370; J3490; J7050; Q9967; U0002; U0003; U0005